=== PATIENT | male | born 1960 | race Two or more races ===

== ENCOUNTER 2016-10-25 14:13 | Emergency (ER) | payer SELFPAY ==
[2016-10-25] MEDS ORDERED: TIVICAY50 M1 PO (15:36)
[2016-10-25] MEDS ORDERED: TRUVADA 200 MG1 EAC1 PO (15:36)
[2016-10-25] MEDS ORDERED: PRINIVIL5 M1 PO (15:57)
== END 2016-10-25 17:30 ==
LOC: EDMED 14:13
DX: Z76.0 Encounter for issue of repeat prescription (principal); I10 Essential (primary) hypertension; Z21 Asymptomatic human immunodeficiency virus [HIV] infection status